=== PATIENT | male | born 1975 ===

== ENCOUNTER 2018-08-14 09:55 | Emergency (ER) | payer OTHER ==
--- NOTE | 2018-08-14 10:15 | UC ---
Abdominal Pain Male HPI - HPI Summary HPI Summary: 43 yo male presents with feelings of abdominal bloating and straining during BMs for the last 3 weeks. He tells me that about 6 months ago he noticed a small amount of bright red blood in his stool and on paper. Went to his PCP who referred him to GI. GI did a colonoscopy and said that he had hemorrhoids - per pt. Gave him cream and pt states his symptoms resolved. Over the last 3 weeks he has felt that is abdomen is "bloated" and he has been having to strain to have a BM. He will have a BM everyday or every other day and says that the consistency if soft, but it does not come out "relaxed" and he has to strain. He has been using Miralax for the last 6 days with no change in his symptoms. He has not noticed any blood in his stool. He is eating and drinking well. Denies fever, chills, recent illness, weight loss, night sweats, SOB, chest pain , n/v, or dysuria. - History of Current Complaint Stated Complaint: CONSTIPATION Time Seen by Provider: 08/14/18 10:14 Hx Obtained From: Patient Timing: Constant Severity Initially: Mild Severity Currently: Mild Pain Intensity: 2 Pain Scale Used: 0-10 Numeric - Allergies/Home Medications Allergies/Adverse Reactions: Allergies Allergy/AdvReac Type Severity Reaction Status Date / Time No Known Allergies Allergy Verified 08/14/18 10:20 PMH/Surg Hx/FS Hx/Imm Hx - Additional Past Medical History Additional PMH: None - Surgical History Surgical History: None - Family History Known Family History: Positive: None - Social History Occupation: Employed Full-time Lives: With Family Alcohol Use: Weekly Substance Use Type: None Smoking Status (MU): Never Smoked Tobacco Review of Systems All Other Systems Reviewed And Are Negative: Yes Constitutional: Positive: Negative Respiratory: Positive: Negative Cardiovascular: Positive: Negative Gastrointestinal: Positive: Other - Constipation Genitourinary: Positive: Negative Neurovascular: Positive: Negative Neurological: Positive: Negative Psychological: Positive: Negative Physical Exam - Summary Physical Exam Summary: GENERAL: NAD. WDWN. No pain distress. SKIN: No rashes, sores, lesions, or open wounds. NECK: Supple. Nontender. No lymphadenopathy. CHEST: CTAB. No r/r/w. No accessory muscle use. Breathing comfortably and in no distress. CV: RRR. Without m/r/g. Pulses intact. Cap refill <2seconds ABDOMEN: Soft. NTTP. No distention or guarding. Bowel sounds mildly hypoactive NEURO: Alert. PSYCH: Age appropriate behavior. Triage Information Reviewed: Yes Vital Signs: Vital Signs: Temp Pulse Resp BP Pulse Ox 98.7 F 101 18 147/82 100 08/14/18 10:14 08/14/18 10:14 08/14/18 10:14 08/14/18 10:14 08/14/18 10:14 Vital Signs Reviewed: Yes Abd Pain Male Course/Dx - Course Course Of Treatment: CT:IMPRESSION: NO ACUTE NONCONTRAST CT PATHOLOGY OF THE VISUALIZED ABDOMEN OR PELVIS. I am unsure the cause of his subjective abdominal bloating. He has a scheduled appointment with his GI for next week. I will have him stop the miralax and try Colace and Simethicone for his symptoms. Advised to increase water intake and keep f/u with GI for next week for further evaluation. - Differential Dx/Clinical Impression Provider Diagnosis: Abdominal bloating Discharge - Sign-Out/Discharge Documenting (check all that apply): Patient Departure All imaging exams completed and their final reports reviewed: Yes - Discharge Plan Condition: Stable Disposition: HOME Prescriptions: Docusate CAP* [Colace Cap*] 100 mg PO DAILY PRN #30 cap PRN Reason: Constipation Simethicone TAB* [Mylicon TAB*] 80 mg PO AC PRN #40 tab MDD 4 PRN Reason: Constipation Patient Education Materials: Gas and Bloating (ED) Referrals: Yuko Dey MD [Primary Care Provider] - Additional Instructions: If you develop a fever, shortness of breath, chest pain, new or worsening symptoms - please call your PCP or go to the ED. Your blood pressure was mildly elevated at todays visit. Please see your primary provider within 4 weeks for recheck and re-evaluation. 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
[2018-08-14 10:20] VITALS: BP 147/82
== END 2018-08-14 12:01 | disposition home or self-care (01) ==
LOC: UCEAST 09:55
DX: R14.0 Abdominal distension (gaseous) (principal); K59.00 Constipation, unspecified
CPT/HCPCS: 74176; 99202; G0463

== ENCOUNTER 2019-04-28 17:12 | Emergency (ER) | payer OTHER ==
[2019-04-28 17:47] VITALS: BP 131/87
--- NOTE | 2019-04-28 17:56 | UC ---
Bite Injury/Animal HPI - HPI Summary HPI Summary: 43-year-old male presents with complaint of insect sting to his left eyebrow that occurred approximately 1 hour prior to arrival. Did not see what stung him. States he had sudden onset of severe burning pain with some mild swelling to the left upper eyelid. Denies visual disturbances, swelling of the lips, tongue, or throat, dysphagia, or difficulty breathing. - History of Current Complaint Chief Complaint: [place] Stated Complaint: INSECT BITE/STING Time Seen by Provider: 04/28/19 17:48 Hx Obtained From: Patient Pain Intensity: 2 - Allergies/Home Medications Allergies/Adverse Reactions: Allergies Allergy/AdvReac Type Severity Reaction Status Date / Time No Known Allergies Allergy Verified 04/28/19 17:47 Home Medications: Home Medications NK [No Home Medications Reported] 04/28/19 [History Confirmed 04/28/19] PMH/Surg Hx/FS Hx/Imm Hx Previously Healthy: Yes - Denies significant PMH - Surgical History Surgical History: None - Family History Known Family History: Positive: None, Non-Contributory - Social History Occupation: Employed Full-time Lives: With Family Alcohol Use: Weekly Substance Use Type: None Smoking Status (MU): Never Smoked Tobacco Length of Time of Smoking/Using Tobacco: 1 year, quit 20 years ago Review of Systems All Other Systems Reviewed And Are Negative: Yes Constitutional: Negative: Fever, Chills Skin: Positive: Other - See HPI Eyes: Negative: Blurred Vision, Diplopia, Drainage, Eye Redness, Photophobia ENT: Negative: Other - Swellling of lips, tongue, or throat Respiratory: Negative: Shortness Of Breath Cardiovascular: Positive: Negative Gastrointestinal: Positive: Negative Genitourinary: Positive: Negative Musculoskeletal: Positive: Negative Neurological: Positive: Negative Is Patient Immunocompromised?: No Physical Exam - Summary Physical Exam Summary: GENERAL APPEARANCE: Well developed, well nourished, alert and cooperative, and appears to be in no acute distress. EYES: Conjunctiva clear. No drainage. PERRL, EOM intact. Vision is grossly intact. Mild edema of the upper left eyelid. MOUTH/THROAT: No swelling of the lips or tongue. Pharynx normal. No tonsilar inflammation, swelling, exudate, or lesions. Uvula midline. Oral cavity normal. Teeth and gingiva in good general condition. Airway patent. CARDIAC: Normal S1 and S2. No S3, S4 or murmurs. Rhythm is regular. There is no peripheral edema, cyanosis or pallor. Extremities are warm and well perfused. Capillary refill is less than 2 seconds. Peripheral pulses intact. LUNGS: Clear to auscultation without rales, rhonchi, wheezing or diminished breath sounds. ABDOMEN: Positive bowel sounds. Soft, nondistended, nontender. No guarding or rebound. No masses or hepatosplenomegally. MUSKULOSKELETAL: ROM intact to all extremities. No joint erythema or tenderness. Normal muscular development. Normal gait. SKIN: Skin normal color, texture and turgor. Triage Information Reviewed: Yes Vital Signs: Initial Vital Signs Temp 98.2 F 04/28/19 17:44 Pulse 65 04/28/19 17:44 Resp 16 04/28/19 17:44 BP 131/87 04/28/19 17:44 Pulse Ox 99 04/28/19 17:44 Vital Signs Reviewed: Yes Bite Injury Course/Dx - Course Course Of Treatment: 43-year-old male presents with complaint of insect sting to his left eyebrow that occurred approximately 1 hour prior to arrival. Did not see what stung him. States he had sudden onset of severe burning pain with some mild swelling to the left upper eyelid. Denies visual disturbances, swelling of the lips, tongue, or throat, dysphagia, or difficulty breathing. Afebrile. VSS. Patient had mild edema of the left upper eyelid with vision grossly intact, no swelling of the lips or tongue, normal pharynx, midline uvula, and patent airway. Remainder of exam unremarkable. Recommending symptomatic treatment for a localized reaction to an insect sting. He is to follow up with his primary care provider in 3-5 days if symptoms do not improve. Anticipatory guidance and warning symptoms reviewed with patient. Verbalizes understanding and agrees with POC. - Differential Dx/Diagnosis Provider Diagnosis: Insect bite Discharge - Sign-Out/Discharge Documenting (check all that apply): Patient Departure All imaging exams completed and their final reports reviewed: No Studies - Discharge Plan Condition: Stable Disposition: HOME Patient Education Materials: Insect Bite or Sting (ED) Referrals: Yuko Dey MD [Primary Care Provider] - 3 Days Additional Instructions: You appear to be having a localized reaction to an insect bite or sting. Take diphenhydramine (Benadry) according to directions as needed for itching. Take acetaminophen (Tylenol) or ibuprofen (Advil, Motrin) according to directions as needed for pain. Follow up with your primary care provider in 3-5 days if no improvement in symptoms. Seek immediate medical attention in the emergency room if you have any swelling of the lips, tongue, or throat, difficulty breathing, or any worsening of symptoms. - Billing Disposition and Condition Condition: STABLE Disposition: Home
== END 2019-04-28 18:05 | disposition home or self-care (01) ==
LOC: UCEAST 17:12
DX: S00.262A Insect bite (nonvenomous) of left eyelid and periocular area, initial encounter (principal); W57.XXXA Bitten or stung by nonvenomous insect and other nonvenomous arthropods, initial encounter; Y92.9 Unspecified place or not applicable
CPT/HCPCS: 99211; G0463